=== PATIENT | female | born 1990 | race Caucasian/White ===

== ENCOUNTER 2018-11-21 07:47 | Emergency (ER) | payer OTHER ==
[~2018-11-21] VITALS: Ht 167.6 cm; Wt 90.7 kg
[2018-11-21 08:08] LABS: BILIRUBIN,URINE NEGATIVE (NEG); CLARITY,URINE CLEAR; COLOR,URINE YELLOW; NITRITE,URINE NEGATIVE (NEG); PH,URINE 5.5; PROTEIN,URINE 30 mg/dL (NEG-TRACE); UROBILINOGEN,URINE 0.2 mg/dL (0.2 mg/dL)
--- NOTE | 2018-11-21 08:14 | PHYS DOC ---
Adult General Chief Complaint Chief Complaint: ABDOMINAL PAIN HPI HPI Patient is a 28 year old female who presents with 3 days of umbilical pain that has now moved to the right lower quadrant. Patient's denies fever, diarrhea , shortness of air, chest pain. Patient states her pain is at a 3 out of 10 and it is cramping in quality. Patient states that last night she took ibuprofen and it did help her pain. (LES MONTANO APRN) Review of Systems Review of Systems Constitutional: Denies fever or chills [] Eyes: Denies change in visual acuity, redness, or eye pain [] HENT: Denies nasal congestion or sore throat [] Respiratory: Denies cough or shortness of breath [] Cardiovascular: No additional information not addressed in HPI [] GI: Right lower abdominal pain, nausea, denies vomiting, bloody stools or diarrhea [] : Denies dysuria or hematuria [] Musculoskeletal: Denies back pain or joint pain [] Integument: Denies rash or skin lesions [] Neurologic: Denies headache, focal weakness or sensory changes [] All other systems were reviewed and found to be within normal limits, except as documented in this note. (LES MONTANO APRN) Current Medications Current Medications Current Medications Medications (Trade) Dose Ordered Sig/Priyanka Start Time Stop Time Status Last Admin Dose Admin Info (CONTRAST GIVEN -- Rx MONITORING) 1 each PRN DAILY PRN 11/21/18 08:30 11/21/18 10:11 DC Iohexol (Omnipaque 300 Mg/ml) 75 ml 1X ONCE 11/21/18 08:15 11/21/18 08:17 DC 11/21/18 09:00 75 ML Ondansetron HCl (Zofran) 4 mg 1X ONCE 11/21/18 08:15 11/21/18 08:16 DC 11/21/18 08:33 4 MG Sodium Chloride 1,000 ml @ 1,000 mls/hr 1X ONCE 11/21/18 08:15 11/21/18 09:14 DC 11/21/18 08:32 1,000 MLS/HR (LILY MARSHALL MD) Allergies Allergies Allergies Coded Allergies Type Severity Reaction Last Updated Verified No Known Drug Allergies 11/21/18 No (LILY MARSHALL MD) Physical Exam Physical Exam Constitutional: Well developed, well nourished, no acute distress, non-toxic appearance. [] HENT: Normocephalic, atraumatic, bilateral external ears normal, oropharynx moist, no oral exudates, nose normal. [] Eyes: PERRLA, EOMI, conjunctiva normal, no discharge. [] Neck: Normal range of motion, no tenderness, supple, no stridor. [] Cardiovascular:Heart rate regular rhythm, no murmur [] Lungs & Thorax: Bilateral breath sounds clear to auscultation [] Abdomen: Bowel sounds normal, soft, umbilical and RLQ tenderness, no masses, no pulsatile masses. [] Skin: Warm, dry, no erythema, no rash. [] Back: No tenderness, no CVA tenderness. [] Extremities: No tenderness, no cyanosis, no clubbing, ROM intact, no edema. [] Neurologic: Alert and oriented X 3, normal motor function, normal sensory function, no focal deficits noted. [] Psychologic: Affect normal, judgement normal, mood normal. [] (LES MONTANO APRN) Current Patient Data Vital Signs Vital Signs Date Time Temp Pulse Resp B/P (MAP) Pulse Ox O2 Delivery O2 Flow Rate FiO2 11/21/18 10:00 95 18 97/63 (74) 99 Room Air 11/21/18 08:06 99.1 99.1 (LILY MARSHALL MD) Lab Values Laboratory Tests Test 11/21/18 07:55 11/21/18 07:59 11/21/18 08:26 Urine Collection Type Unknown Urine Color Yellow Urine Clarity Clear Urine pH 5.5 Urine Specific [place] >=1.030 Urine Protein 30 mg/dL (NEG-TRACE) Urine Glucose (UA) Negative mg/dL (NEG) Urine Ketones (Stick) Negative mg/dL (NEG) Urine Blood Small (NEG) Urine Nitrite Negative (NEG) Urine Bilirubin Negative (NEG) Urine Urobilinogen Dipstick 0.2 mg/dL (0.2 mg/dL) Urine Leukocyte Esterase Trace (NEG) Urine RBC 0 /HPF (0-2) Urine WBC Occ /HPF (0-4) Urine Squamous Epithelial Cells Many /LPF Urine Bacteria 0 /HPF (0-FEW) Urine Mucus Mod /LPF POC Urine HCG, Qualitative Hcg negative (Negative) White Blood Count 5.7 x10^3/uL (4.0-11.0) Red Blood Count 4.75 x10^6/uL (3.50-5.40) Hemoglobin 12.1 g/dL (12.0-15.5) Hematocrit 37.2 % (36.0-47.0) Mean Corpuscular Volume 78 fL (79-100) L Mean Corpuscular Hemoglobin 26 pg (25-35) Mean Corpuscular Hemoglobin Concent 33 g/dL (31-37) Red Cell Distribution Width 15.2 % (11.5-14.5) H Platelet Count 276 x10^3/uL (140-400) Neutrophils (%) (Auto) 56 % (31-73) Lymphocytes (%) (Auto) 25 % (24-48) Monocytes (%) (Auto) 18 % (0-9) H Eosinophils (%) (Auto) 0 % (0-3) Basophils (%) (Auto) 1 % (0-3) Neutrophils # (Auto) 3.2 x10^3uL (1.8-7.7) Lymphocytes # (Auto) 1.4 x10^3/uL (1.0-4.8) Monocytes # (Auto) 1.0 x10^3/uL (0.0-1.1) Eosinophils # (Auto) 0.0 x10^3/uL (0.0-0.7) Basophils # (Auto) 0.0 x10^3/uL (0.0-0.2) Sodium Level 140 mmol/L (136-145) Potassium Level 3.5 mmol/L (3.5-5.1) Chloride Level 103 mmol/L (98-107) Carbon Dioxide Level 24 mmol/L (21-32) Anion Gap 13 (6-14) Blood Urea Nitrogen 11 mg/dL (7-20) Creatinine 0.9 mg/dL (0.6-1.0) Estimated GFR (Cockcroft-Gault) 73.5 BUN/Creatinine Ratio 12 (6-20) Glucose Level 99 mg/dL (70-99) Calcium Level 8.8 mg/dL (8.5-10.1) Total Bilirubin 0.4 mg/dL (0.2-1.0) Aspartate Amino Transferase (AST) 20 U/L (15-37) Alanine Aminotransferase (ALT) 26 U/L (14-59) Alkaline Phosphatase 94 U/L (46-116) Total Protein 8.4 g/dL (6.4-8.2) H Albumin 4.1 g/dL (3.4-5.0) Albumin/Globulin Ratio 1.0 (1.0-1.7) Lipase 183 U/L (73-393) Laboratory Tests 11/21/18 08:26 Laboratory Tests 11/21/18 08:26 (LILY MARSHALL MD) Lab Values Laboratory Tests Test 11/21/18 07:55 11/21/18 07:59 11/21/18 08:26 Urine Collection Type Unknown Urine Color Yellow Urine Clarity Clear Urine pH 5.5 Urine Specific [place] >=1.030 Urine Protein 30 mg/dL (NEG-TRACE) Urine Glucose (UA) Negative mg/dL (NEG) Urine Ketones (Stick) Negative mg/dL (NEG) Urine Blood Small (NEG) Urine Nitrite Negative (NEG) Urine Bilirubin Negative (NEG) Urine Urobilinogen Dipstick 0.2 mg/dL (0.2 mg/dL) Urine Leukocyte Esterase Trace (NEG) Urine RBC 0 /HPF (0-2) Urine WBC Occ /HPF (0-4) Urine Squamous Epithelial Cells Many /LPF Urine Bacteria 0 /HPF (0-FEW) Urine Mucus Mod /LPF POC Urine HCG, Qualitative Hcg negative (Negative) White Blood Count 5.7 x10^3/uL (4.0-11.0) Red Blood Count 4.75 x10^6/uL (3.50-5.40) Hemoglobin 12.1 g/dL (12.0-15.5) Hematocrit 37.2 % (36.0-47.0) Mean Corpuscular Volume 78 fL (79-100) L Mean Corpuscular Hemoglobin 26 pg (25-35) Mean Corpuscular Hemoglobin Concent 33 g/dL (31-37) Red Cell Distribution Width 15.2 % (11.5-14.5) H Platelet Count 276 x10^3/uL (140-400) Neutrophils (%) (Auto) 56 % (31-73) Lymphocytes (%) (Auto) 25 % (24-48) Monocytes (%) (Auto) 18 % (0-9) H Eosinophils (%) (Auto) 0 % (0-3) Basophils (%) (Auto) 1 % (0-3) Neutrophils # (Auto) 3.2 x10^3uL (1.8-7.7) Lymphocytes # (Auto) 1.4 x10^3/uL (1.0-4.8) Monocytes # (Auto) 1.0 x10^3/uL (0.0-1.1) Eosinophils # (Auto) 0.0 x10^3/uL (0.0-0.7) Basophils # (Auto) 0.0 x10^3/uL (0.0-0.2) Sodium Level 140 mmol/L (136-145) Potassium Level 3.5 mmol/L (3.5-5.1) Chloride Level 103 mmol/L (98-107) Carbon Dioxide Level 24 mmol/L (21-32) Anion Gap 13 (6-14) Blood Urea Nitrogen 11 mg/dL (7-20) Creatinine 0.9 mg/dL (0.6-1.0) Estimated GFR (Cockcroft-Gault) 73.5 BUN/Creatinine Ratio 12 (6-20) Glucose Level 99 mg/dL (70-99) Calcium Level 8.8 mg/dL (8.5-10.1) Total Bilirubin 0.4 mg/dL (0.2-1.0) Aspartate Amino Transferase (AST) 20 U/L (15-37) Alanine Aminotransferase (ALT) 26 U/L (14-59) Alkaline Phosphatase 94 U/L (46-116) Total Protein 8.4 g/dL (6.4-8.2) H Albumin 4.1 g/dL (3.4-5.0) Albumin/Globulin Ratio 1.0 (1.0-1.7) Lipase 183 U/L (73-393) Laboratory Tests 11/21/18 08:26 Laboratory Tests 11/21/18 08:26 (LES MONTANO APRN) EKG EKG [] (LES MONTANO APRN) Radiology/Procedures Radiology/Procedures [] (LES MONTANO APRN) Impressions: [facility] [address] [place] [address] IMAGING REPORT Signed PATIENT: CHASIDY MARTINEZ ACCOUNT: [id number] : 1990 LOCATION: ER AGE: 28 SEX: F EXAM STATUS: REG ER ORD. PHYSICIAN: LES MONTANO APRN REASON: right lower abd pain PROCEDURE: CT ABD PELV W/ IV CONTRST ONLY CT ABD PELV W/ IV CONTRST ONLY Indication: LOWER ABD PAIN X 3 DAYS INJ 75ML OMNI 300 NO PREV Exposure: One or more of the following individualized dose reduction techniques were utilized for this examination: 1. Automated exposure control 2. Adjustment of the mA and/or kV according to patient size 3. Use of iterative reconstruction technique. Technique: Intravenous contrast was given. No oral contrast per request. FINDINGS: Lung bases are clear. Liver unremarkable. Spleen is mildly elongated measuring 12.8 cm long axis. Pancreas unremarkable. No evidence of adrenal mass. Kidneys demonstrate symmetric enhancement without evidence of hydronephrosis or focal lesion. Gallstones are identified within a contracted gallbladder. No aortic aneurysm. No significant lymph node enlargement. No evidence of bowel obstruction. Mild wall thickening of colon at the hepatic flexure, although this could be due to lack of distention. Mild diverticulosis. Appendix appears normal. No evidence of pneumoperitoneum or significant ascites. Intrauterine device is noted. 3 cm right adnexal lesion, likely an ovarian cyst. This measures slightly above simple fluid, 24 Hounsfield units, could indicate hemorrhagic content. Urinary bladder is not adequately distended for evaluation. Mild anterior subluxation of L5 on S1 with degenerative change at the disc. No evidence of spondylolysis. IMPRESSION: 1. Cholelithiasis. 2. Mild wall thickening of colon at the hepatic hepatic flexure, without much fatty stranding, could be due to nondistention, versus mild colitis. 3. 3 cm right adnexal lesion most likely an ovarian cyst. 4. Borderline splenomegaly. 5. Degenerative changes at the lumbosacral junction with mild spondylolisthesis. Electronically signed by: Sharan Strange MD (11/21/2018 9:29 AM) [id number] DICTATED and SIGNED BY: SHARAN STRANGE MD DATE: 11/21/18 0929 (LES MONTANO APRN) Course & Med Decision Making Course & Med Decision Making Patient is a 28 year old female who presents with 3 days of umbilical pain that has now moved to the right lower quadrant. Patient's denies fever, diarrhea , shortness of air, chest pain, dysuria. Patient states her pain is at a 3 out of 10 and it is cramping in quality. Patient states that last night she took ibuprofen and it did help her pain. Vital signs within normal limits, except heart rate 109. Temp 99.1. Speaks in full clear sentences. Mucous membranes moist. Skin pink warm and dry. Lungs are clear to auscultation all lobes. Heart rate regular murmur. Abdomen is soft and tender at the umbilicus and right lower quadrant. Patient states it is only "slightly tender". Pain is with palpation without rebound tenderness. Alert and Oriented. Ambulatory with steady gait. Patient refusing pain medication as this time. Blood work unremarkable. Urine shows no infection. CT ABD PELVIS shows 1. Cholelithiasis. 2. Mild wall thickening of colon at the hepatic hepatic flexure , without much fatty stranding, could be due to nondistention, versus mild colitis. 3. 3 cm right adnexal lesion most likely an ovarian cyst. 4. Borderline splenomegaly. 5. Degenerative changes at the lumbosacral junction with mild spondylolisthesis. Patient to follow up with her transplanter orchid if pain persists or worsens and she can also follow up with GI or her primary care provider concerning Gall stones. (LES MONTANO APRN) Course & Med Decision Making Staff Physician Addendum: I was working in the ER during the course of this patient's visit. I was available for consultation as needed, but I was not directly involved in the care of this patient. (LILY MARSHALL MD) Dragon Disclaimer Dragon Disclaimer This electronic medical record was generated, in whole or in part, using a voice recognition dictation system. (LES MONTANO APRN) Departure Departure Impression: Primary Impression: Gall stones Additional Impression: Ovarian cyst Disposition: 01 HOME, SELF-CARE Condition: STABLE Referrals: MELITA BECERRIL MD (PCP) NA CHAVEZ Jr, MD, SCOTT S MD Patient Instructions: Cholelithiasis, Ovarian Cyst Additional Instructions: Follow-up with your primary care provider for gallstones or you can go to a GI doctor. Follow up with transplanter orchid if right lower abdominal pain worsens. Drink plenty of water. If pain becomes intense and you begin running a fever and having vomiting return to ED. Scripts Ondansetron (ONDANSETRON ODT) 4 Mg Tab.rapdis 1 TAB PO PRN Q6-8HRS, #20 TAB Prov: LSE MONTANO APRN 11/21/18 Hydrocodone/Apap 5-325 (NORCO 5-325 TABLET) 1 Each Tablet 1 TAB PO PRN Q6HRS PRN for PAIN, #8 TAB 0 Refills Prov: LES MONTANO APRN 11/21/18 Problem Qualifiers Additional Impression: Ovarian cyst Laterality: right Qualified Codes: N83.201 - Unspecified ovarian cyst, right side LES MONTANO APRN Nov 21, 2018 08:14 LILY MARSHALL MD Nov 21, 2018 10:39
[2018-11-21] MEDS ORDERED: IV NORMAL SALINE 1000ML BAG 1,000 ML IV ONE (08:15)
[2018-11-21] MEDS ORDERED: IOHEXOL 300 MG/ML 100ML VIAL. IV ONE (08:15)
[2018-11-21] MEDS ORDERED: ONDANSETRON PF 4 MG/2 ML VIAL. IV ONE (08:15)
[2018-11-21 08:28] LABS: BACTERIA,URINE 0 /HPF (0-FEW); RBC,URINE 0 /HPF (0-2); SQUAMOUS EPITHELIAL CELL,UR MANY /LPF; WBC,URINE OCC /HPF (0-4)
[2018-11-21] MEDS ORDERED: CONTRAST GIVEN. MC PRN (08:30)
[2018-11-21 08:46] LABS: BASO % 1 % (0-3); EOS % 0 % (0-3); HEMATOCRIT 37.2 % (36.0-47.0); HEMOGLOBIN 12.1 g/dL (12.0-15.5); LYMPH # 1.4 x10^3/uL (1.0-4.8); LYMPH % 25 % (24-48); MEAN CORPUSCULAR HEMOGLOBIN 26 pg (25-35); MEAN CORPUSCULAR HGB CONC 33 g/dL (31-37); MEAN CORPUSCULAR VOLUME 78 fL (79-100); MONO % 18 % (0-9); NEUT # 3.2 x10^3uL (1.8-7.7); NEUT % 56 % (31-73); PLATELET COUNT 276 x10^3/uL (140-400); RED BLOOD COUNT 4.75 x10^6/uL (3.50-5.40); RED CELL DISTRIBUTION WIDTH 15.2 % (11.5-14.5); WHITE BLOOD COUNT 5.7 x10^3/uL (4.0-11.0)
[2018-11-21 08:55] LABS: CALCIUM 8.8 mg/dL (8.5-10.1); CREATININE 0.9 mg/dL (0.6-1.0); GFR 73.5; POTASSIUM 3.5 mmol/L (3.5-5.1)
[2018-11-21 09:02] LABS: ALBUMIN 4.1 g/dL (3.4-5.0); TOTAL BILIRUBIN 0.4 mg/dL (0.2-1.0); TOTAL PROTEIN 8.4 g/dL (6.4-8.2)
--- NOTE | 2018-11-21 09:32 | RAD ---
CT ABD PELV W/ IV CONTRST ONLY Indication: LOWER ABD PAIN X 3 DAYS INJ 75ML OMNI 300 NO PREV Exposure: One or more of the following individualized dose reduction techniques were utilized for this examination: 1. Automated exposure control 2. Adjustment of the mA and/or kV according to patient size 3. Use of iterative reconstruction technique. Technique: Intravenous contrast was given. No oral contrast per request. FINDINGS: Lung bases are clear. Liver unremarkable. Spleen is mildly elongated measuring 12.8 cm long axis. Pancreas unremarkable. No evidence of adrenal mass. Kidneys demonstrate symmetric enhancement without evidence of hydronephrosis or focal lesion. Gallstones are identified within a contracted gallbladder. No aortic aneurysm. No significant lymph node enlargement. No evidence of bowel obstruction. Mild wall thickening of colon at the hepatic flexure, although this could be due to lack of distention. Mild diverticulosis. Appendix appears normal. No evidence of pneumoperitoneum or significant ascites. Intrauterine device is noted. 3 cm right adnexal lesion, likely an ovarian cyst. This measures slightly above simple fluid, 24 Hounsfield units, could indicate hemorrhagic content. Urinary bladder is not adequately distended for evaluation. Mild anterior subluxation of L5 on S1 with degenerative change at the disc. No evidence of spondylolysis. IMPRESSION: 1. Cholelithiasis. 2. Mild wall thickening of colon at the hepatic hepatic flexure, without much fatty stranding, could be due to nondistention, versus mild colitis. 3. 3 cm right adnexal lesion most likely an ovarian cyst. 4. Borderline splenomegaly. 5. Degenerative changes at the lumbosacral junction with mild spondylolisthesis. Electronically signed by: Sharan Strange MD (11/21/2018 9:29 AM) [id number]
[2018-11-21] MEDS ORDERED: ONDA4TAB12 PO (09:43)
[2018-11-21] MEDS ORDERED: HYDR-3164 PO (09:43)
[2018-11-21 10:00] VITALS: BP 97/63
== END 2018-11-21 10:04 | disposition home or self-care (01) ==
LOC: ER 07:47
DX: K80.20 Calculus of gallbladder without cholecystitis without obstruction (principal); N83.201 Unspecified ovarian cyst, right side; M43.17 Spondylolisthesis, lumbosacral region
CPT/HCPCS: 36415; 74177; 80053; 81001; 81025; 83690; 85025; 87086; 96374; 99284; J2405; J7030; Q9967; 96361

== ENCOUNTER → 2020-10-17 | Outpatient (CLI) | payer OTHER ==
[~2020-10-17] MED LIST: HYDR-3164 PO; ONDA4TAB12 PO
--- NOTE | 2020-10-17 17:09 | KCIC ---
STUDY: MRI of the left knee without contrast INDICATION: Left knee pain. [place] a pop 2 weeks prior. COMPARISON: None. TECHNIQUE: Multiplanar MR imaging of the left knee performed without the use of intravenous or intra- articular contrast. FINDINGS: Menisci: Intact medial and lateral menisci. Cruciate ligaments: The ACL normally parallels Blumensaat's line and intact traversing fibers are wel l visualized. Intact PCL with normal morphology. Collateral ligaments: Multifocal soft tissue edema about the knee some of which extends along the med ial and lateral collateral ligaments. The proximal FCL is more heterogeneous than typically seen and a partial tear is possible. No medial collateral ligament tear. Edema extends along both the medial a nd lateral retinaculum to include the MPFL at its origin but there are no typical stigmata of a later al patellar dislocation/relocation event such as kissing contusions. Tendons: Intact quadriceps. Undulating morphology of the patellar tendon favored on account of the la rge knee joint effusion and tendon fibers remain continuous. Muscular edema within the distal vastus lateralis and potential faint edema within a small portion of the vastus medialis and anterior aspect of the biceps femoris. No tendon disruption is apparent noting mild motion on the axial T2 sequence. Cartilage: No high-grade or full-thickness chondral defect. Bones: No acute fracture or focal marrow contusion. Minimal marrow edema at the far peripheral aspect of the lateral tibial plateau. Miscellaneous: Large knee joint effusion. Small loose body or synovitis adjacent to the body of the l ateral meniscus, image 11 series 10. Scattered subcutaneous and popliteal fossa edema. Thin edema tra cks down into the calf deep to the soleus/gastrocnemius muscles. IMPRESSION: 1. Intact menisci, cruciate and collateral ligaments. 2. Large knee joint effusion and multifocal soft tissue edema about the knee to include the poplitea l fossa. There is also muscular edema within the distal vastus lateralis and faintly within the dista l vastus medialis. A vastus lateralis strain is presumed present but no full-thickness tear is seen t o involve the tendons forming the quadriceps. There could be a partial tear of the fibular collateral ligament as well but ligament fibers remain visualized and this could be related to the adjacent [place]. Overall the extent of soft tissue edema and the volume of the joint effusion is unusual given the lack of clear ligamentous disruption, intact cartilage and bones and unremarkable menisci. Correlate with mechanism of injury to help explain. A repeat MRI could be performed once edema has subsided to allow further evaluation but is not absolutely indicated at this time. 3. Small loose body or localized synovitis adjacent to the lateral meniscal body. Electronically signed by: DANIELLA MEDINA MD (10/17/2020 5:07 PM) [id number]
== END ==
LOC: KCIC MRI 15:00
PROVIDERS: ATTEND Orthopaedic Surgery
DX: M25.462 Effusion, left knee (principal); M25.562 Pain in left knee; R60.9 Edema, unspecified
CPT/HCPCS: 73721